=== PATIENT | female | born 1980 | race Caucasian/White ===

== ENCOUNTER 2019-03-09 09:06 | Emergency (ER) | payer OTHER ==
[~2019-03-09] VITALS: Ht 170.2 cm; Wt 102.1 kg
[~2019-03-09 09:06] MED LIST: HUMULIN N100 UNIT/1; HYDACE5 PO; LABE100 PO; MULVITMINE
== END 2019-03-09 10:22 | disposition home or self-care (01) ==
LOC: ER 09:06
DX: S61.214A Laceration without foreign body of right ring finger without damage to nail, initial encounter (principal); Z87.891 Personal history of nicotine dependence; W25.XXXA Contact with sharp glass, initial encounter
CPT/HCPCS: 12001; 99282-25

== ENCOUNTER 2019-07-04 21:14 | Emergency (ER) | payer OTHER ==
[~2019-07-04] VITALS: Ht 157.5 cm; Wt 102.1 kg
[2019-07-04] MEDS ORDERED: Catapres0.1 MG PO (22:03)
== END 2019-07-04 22:19 | disposition home or self-care (01) ==
LOC: ER 21:14
DX: I10 Essential (primary) hypertension (principal)
CPT/HCPCS: 99283

== ENCOUNTER 2021-09-12 22:04 | Emergency (ER) | payer OTHER ==
[~2021-09-12] VITALS: Ht 170.2 cm; Wt 115.7 kg
[~2021-09-12 22:04] MED LIST changes: +Catapres0.1 MG PO; +LOSARTAN POTAS100 M1 PO; +METO50ER PO
[2021-09-12 22:36] LABS: BASOPHILS ABSOLUTE AUTO 0.04 K/mm3 (0.00-0.23); BASOPHILS PERCENT AUTO 0 % (0-2); EOSINOPHILS ABSOLUTE AUTO 0.04 K/mm3 (0.00-0.68); EOSINOPHILS PERCENT AUTO 0 % (0-6); Hematocrit 47.1 % (33.0-51.0); Hemoglobin 16.6 g/dL (11.5-16.0); IMMATURE GRAN ABSOLUTE AUTO 0.04 K/mm3 (0.00-0.10); IMMATURE GRAN PERCENT AUTO 0 % (0-1); LYMPHOCYTES ABSOLUTE AUTO 1.24 K/mm3 (0.84-5.20); LYMPHOCYTES PERCENT AUTO 12 % (21-46); MONOCYTES ABSOLUTE AUTO 0.47 K/mm3 (0.16-1.47); MONOCYTES PERCENT AUTO 5 % (4-13); Mean Corpuscular HGB 33.4 pg (26.0-34.0); Mean Corpuscular HGB Conc 35.2 g/dL (31.5-36.5); Mean Corpuscular Volume 95 fL (80-100); Mean Platelet Volume 10.6 fL (9.1-12.4); NEUTROPHILS ABSOLUTE AUTO 8.19 K/mm3 (1.96-9.15); NEUTROPHILS PERCENT AUTO 82 % (41-73); Platelet Count 258 K/mm3 (150-400); RDW Coefficient Variation 11.9 % (11.7-14.2); RDW Standard Deviation 41.2 fL (35.1-46.3); Red Blood Cell Count 4.97 M/mm3 (3.80-5.20); White Blood Cell Count 10.02 K/mm3 (4.00-11.30)
[2021-09-12 22:56] LABS: Albumin, Blood 3.9 g/dL (3.4-5.0); Bilirubin, Total 0.5 mg/dL (0.1-1.0); Calcium, Blood 9.3 mg/dL (8.5-10.1); Creatinine, Blood 0.68 mg/dL (0.40-1.00); Globulin, Blood 4.1 g/dL (2.2-4.0); Potassium, Blood 4.1 mmol/L (3.5-5.5)
== END 2021-09-13 05:01 | disposition home or self-care (01) ==
LOC: ER 22:04
PROVIDERS: Student in an Organized Health Care Education/Training Program
DX: R10.13 Epigastric pain (principal); K59.00 Constipation, unspecified; R11.0 Nausea; I10 Essential (primary) hypertension; Z79.899 Other long term (current) drug therapy; Z87.891 Personal history of nicotine dependence
CPT/HCPCS: 74177; 80053; 83605; 83690; 85025; 93005; 93010; 96374; 96375; 99284-25; A9270; J1885; J2270; J7030; Q9967

== ENCOUNTER → 2022-02-06 | Outpatient (CLI) | payer OTHER ==
[2022-02-10 14:08] LABS: HPV 16 Negative (Negative); HPV 18 Negative (Negative); HPV OTHER HR TYPES Negative (Negative)
== END | disposition home or self-care (01) ==
LOC: LAB 08:30 → RAD SHORT 08:30
PROVIDERS: Family Medicine
DX: Z01.419 Encounter for gynecological examination (general) (routine) without abnormal findings (principal)
CPT/HCPCS: 87624; G0145

== ENCOUNTER → 2022-02-06 | Outpatient (CLI) | payer OTHER | LOC: LAB SHORT 12:13 → PLD 12:13 | DX: L81.9 Disorder of pigmentation, unspecified (principal) | CPT/HCPCS: 88305; 88312 ==